=== PATIENT | male | born 1955 | race Caucasian/White ===

== ENCOUNTER → 2017-02-04 | Outpatient (CLI) | payer OTHER, MEDICARE ==
[~2017-02-04] MED LIST: ASPIRIN EC325 MG PO
== END ==
LOC: SLEEP-COR 21:30
DX: G47.33 Obstructive sleep apnea (adult) (pediatric) (principal)
CPT/HCPCS: 95810

== ENCOUNTER → 2017-02-15 | Outpatient (CLI) | payer MEDICARE | LOC: US 14:18 | DX: G45.9 Transient cerebral ischemic attack, unspecified (principal); I65.23 Occlusion and stenosis of bilateral carotid arteries | CPT/HCPCS: 93880 ==

== ENCOUNTER → 2020-11-17 | Outpatient (CLI) | payer MEDICARE ==
[~2020-11-17] MED LIST changes: -ASPIRIN EC325 MG PO; +ASPIRIN EC81 MG PO; +CARDIZEM CD180 MG PO; +CYCLOBENZAPRINE5 MG PO; +DULERA 200 MCG8.8 GM INH; +ELIQUIS5 MG PO; +HYZAAR 100-251 EACH PO; +IPRAT-ALBUT 0.5-3 ML INH; +LEVAQUIN750 MG PO; +LOPRESSOR50 MG PO; +NEURONTIN 400400 MG PO; +PRAVACHOL40 MG PO; +PREDNISONE20 MG PO; +PROAIR RESPICLICK INH; +PROTONIX40 MG PO; +TESSALON PERLE100 MG PO; +TUSSINEX PO; +ZANTAC150 MG PO
== END ==
LOC: EXRD 10:11
DX: R10.9 Unspecified abdominal pain (principal); N28.1 Cyst of kidney, acquired
CPT/HCPCS: 76705

== ENCOUNTER → 2020-12-03 | Outpatient (CLI) | payer MEDICARE | LOC: NM 12-01 14:00 → US 12:52 → NM 14:00 | DX: R10.11 Right upper quadrant pain (principal); N28.1 Cyst of kidney, acquired; N28.9 Disorder of kidney and ureter, unspecified; R93.2 Abnormal findings on diagnostic imaging of liver and biliary tract | CPT/HCPCS: 78227; A9537; J2805 ==

== ENCOUNTER → 2021-12-09 | Outpatient (CLI) | payer MEDICARE | LOC: EXRD 12-08 13:30 | DX: R09.89 Other specified symptoms and signs involving the circulatory and respiratory systems (principal); N28.1 Cyst of kidney, acquired; I65.23 Occlusion and stenosis of bilateral carotid arteries | CPT/HCPCS: 76775; 93880 ==